=== PATIENT | female | born 1960 | race Caucasian/White ===

== ENCOUNTER 2019-08-31 11:40 | Emergency (ER) | payer MEDICARE, SELFPAY ==
[2019-08-31 11:42] VITALS: BP 121/82; PULSE 86; RESP 18; TEMP 36.6; O2SAT 100; BMI 22.3
--- NOTE | 2019-08-31 12:13 | EKG12_ITS ---
Test Reason : ANXIETY Blood Pressure : / mmHG Vent. Rate : 067 BPM Atrial Rate : 067 BPM P-R Int : 120 ms QRS Dur : 082 ms QT Int : 380 ms P-R-T Axes : 042 064 030 degrees QTc Int : 401 ms Normal sinus rhythm Normal ECG No previous ECGs available Confirmed by AURELIO ESCOBEDO, CAROLINA ([id number]), news assignment editor STERLING HAQ ([id number]) on 09/11/2019 9:53:33 AM Referred By: LORY Confirmed By:CAROLINA CAREY MD
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
[2019-08-31 12:51] LABS: Mucous, Urine 0 SEEN /hpf (<or=2+); Red Blood Cells-Urine 0 SEEN /hpf (0-5)
[2019-08-31 12:57] LABS: Color, Urine Yellow (Yellow); Glucose, Dipstick NEGATIVE (Normal); Urine Bilirubin Dipstick Negative (Negative); Urine Clarity Sl Cloudy (Clear)
[2019-08-31 12:58] LABS: Ketone-Dipstick Negative (Negative); Leukocyte Esterase-Dipstick 100 /ul (Negative); Nitrite-Dipstick Positive (Negative); Occult Blood-Urine Negative /ul (Negative); Protein-Dipstick Negative (Negative); Urine Urobilinogen Normal (Normal); Urine pH 6.5 (5.0 - 8.0)
[2019-08-31 13:00] LABS: Bacteria 2+ /hpf (None Seen); Squamous Epithelial Cells - UA 0-5 SEEN /hpf (5-10); White Blood Cells 10-25 SEEN /hpf (0-5)
[2019-08-31 13:04] LABS: Absolute Lymphocyte Count 0.74 X10^3/uL (0.83-4.51); Basophil# 0.04 X10^3/uL; Basophil% 0.7 % (0-1); Eosinophil# 0.06 X10^3/uL; Eosinophils% 1.1 % (0-5); Hematocrit 42.9 % (37-47); Hemoglobin 13.9 g/dL (12.0-15.0); Lymphocyte # 0.74 X10^3/ul (4.0); Lymphocyte % 13.8 % (19-41); Mean Corp Hgb Conc 32.4 g/dL (32-36); Mean Corpuscular Volume 92.5 fL (81-99); Mean Platelet Vol. 9.9 fl (6.2-12.0); Monocyte# 0.45 X10^3/uL; Monocyte% 8.4 % (0-10); NRBC Flagged by Analyzer 0 % (0-5); Neutrophil # 4.04 X10^3/uL (2.7-7.7); Neutrophil % 75.6 % (47-70); Platelet Count 238 K/mm3 (150-450); RBC Distribution Width CV 12.4 % (11.6-14.6); RBC Distribution Width SD 42.4 fl (35.1-43.9); Red Blood Count 4.64 M/mm3 (4.2-5.4); White Blood Count 5.4 K/mm3 (4.4-11.0)
[2019-08-31 13:06] LABS: Amphetamine Urine VISTA NEGATIVE (<1000 ng/mL); Barbiturate Urine VISTA NEGATIVE (< 200 ng/mL); Benzodiazepine Urine VISTA NEGATIVE (< 200 ng/mL); Cocaine Urine VISTA NEGATIVE (< 300 ng/mL); Ecstacy Urine VISTA NEGATIVE (< 500 ng/mL); Methadone Urine VISTA NEGATIVE (< 300 ng/mL); PCP Urine VISTA NEGATIVE (< 25 ng/mL); THC Urine VISTA NEGATIVE (< 50 ng/mL); Vista UDS pH Range 6
[2019-08-31 13:12] VITALS: RESP 18
[2019-08-31 13:12] LABS: Anion Gap 6 (5-15); BUN 13 mg/dL (7-18); BUN/Creat Ratio 14.5 RATIO (10-20); Calcium,Total 9.1 mg/dL (8.5-10.1); Chloride 108 mmol/L (98-107); EST Glomerular Filtration Rate 68 mL/min (>60); Est Glom Filt Rate - Afr Amer 82 mL/min (>60); Glucose 119 mg/dL (74-106); Sodium Level 143 mmol/L (136-145)
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
[2019-08-31 14:06] VITALS: RESP 18
[2019-08-31 14:53] VITALS: PULSE 75; RESP 16; O2SAT 97
== END 2019-08-31 14:54 | disposition home or self-care (01) ==
PROVIDERS: Emergency Provider Emergency Medicine; Family Provider Internal Medicine; PCP Internal Medicine
DX: F39 Unspecified mood [affective] disorder (principal); F32.9 Major depressive disorder, single episode, unspecified; R45.851 Suicidal ideations; R41.0 Disorientation, unspecified; R44.0 Auditory hallucinations; Z79.810 Long term (current) use of selective estrogen receptor modulators (SERMs); Z88.0 Allergy status to penicillin; Z85.3 Personal history of malignant neoplasm of breast
CPT/HCPCS: 80048; 80307; 80320; 81001; 85025; 87086; 87088; 87186; 93005; 99283; G0480